=== PATIENT | female | born 1970 | race Caucasian/White ===

== ENCOUNTER 2022-05-03 08:42 | Outpatient (CLI) | payer OTHER, SELFPAY ==
[2022-05-03 18:48] LABS: Kit Draw Collected
== END 2022-05-03 08:43 | disposition home or self-care (01) ==
LOC: ANHGOSHLAB 08:45
PROVIDERS: PCP Family Medicine; Visit Provider Family Medicine
DX: Z00.00 Encounter for general adult medical examination without abnormal findings (principal); E55.9 Vitamin D deficiency, unspecified; Z11.59 Encounter for screening for other viral diseases; Z78.0 Asymptomatic menopausal state
CPT/HCPCS: 36415

== ENCOUNTER 2024-01-06 13:32 | Outpatient (CLI) | payer OTHER, SELFPAY ==
[2024-01-06 17:21] LABS: Influenza A QL RT-PCR Negative (Negative); Influenza B QL RT-PCR Negative (Negative); RSV RNA, RT-PCR Negative (Negative); SARS-CoV-2 RNA PCR Negative (Negative)
== END 2024-01-06 13:33 | disposition home or self-care (01) ==
LOC: ANHGOSHLAB 13:34
PROVIDERS: PCP Family Medicine; Visit Provider Student in an Organized Health Care Education/Training Program
DX: Z11.52 Encounter for screening for COVID-19 (principal)
CPT/HCPCS: 87637

== ENCOUNTER 2024-08-02 13:39 | Outpatient (CLI) | payer OTHER, SELFPAY ==
--- OUTSIDE RECORDS SUMMARY | 2024-08-02 13:43 | XMS_ITS | Referral Summary ---
Author Organization [facility] Healthcare Address [address] [place] [address] Care Team Providers Care Boot Maker Name Role Phone Zandra Renner MD Unavailable Bib Burnham MD Unavailable [phone] Deidra Sanders MD Unavailable [phone] Therese Chadwick MD Primary Care Provider + Encounters Date Type Department Care Team Description 08/02/2024 Orders Only [facility] Oncology [address] [place] [address] [address] [place] [phone] Lili Alvarado RN Malignant neoplasm of upper-outer quadrant of right breast in female, estrogen receptor positive (HCC) (Primary Dx) 08/02/2024 Orders Only [facility] Oncology [address] [place] [address] [address] [place] [phone] Lili Alvarado, RN 07/25/2024 1:00 PM CDT Office Visit [facility] Obstetrics and Gynecology [address] [facility] 7th Floor [address] [place] [address] Albina Howard MD Menopause (Primary Dx); Urinary urgency; Genitourinary syndrome of menopause; Malignant neoplasm of upper-outer quadrant of right breast in female, estrogen receptor positive (HCC) 07/24/2024 Orders Only [facility] Oncology [address] [place] [address] [address] [place] [phone] Lili Alvarado RN Urinary urgency (Primary Dx) from Last 3 Months Allergies Active Allergy Reactions Criticality Noted Date Comments Clarithromycin Nausea & Vomiting Low 06/11/2010 Nitrofurantoin Nausea & Vomiting High 10/14/2023 Medications UNABLE TO FIND Take 1 each by mouth every morning Med Name: BIOTIN HAIR GUMMIE. 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 estrogen receptor modulators (serms) Take 1 tablet (20 mg total) by mouth daily 90 tablet 3 5 04/27/19 26 Active fezolinetant (Veozah) tablet tabletIndicatio ns:Vasomotor Symptoms associated with Menopause Take 1 tablet (45 mg total) by mouth daily 30 tablet 11 5 04/27/19 26 Active estradioL (VAGIFEM) 10 mcg tabletIndicatio ns:Urinary urgency,Genitou rinary syndrome of menopause Insert 1 tablet (10 mcg total) into the vagina 2 (two) times a week 24 tablet 3 5 Active oxyBUTYnin XL (DITROPAN-XL) 5 mg 24 hr tablet Take 1 tablet (5 mg total) by mouth daily 5 07/26/19 25 Discontinu ed(Therapy completed) Active Problems Problem Noted Date Diagnosed Date half-way (current) use of aromatase inhibitors 03/27/2024 Scoliosis, unspecified scoli osis type, unspecified spinal region 11/03/2022 Other idiopathic scoliosis, thoracolumbar region 09/08/2022 Onychomycosis 06/13/2022 07/15/2022 Paronychia of toe 06/11/2022 07/15/2022 Malignant neoplasm of upper- outer quadrant of right breast in female, estrogen receptor positive 07/10/2021 Persons encountering health services in other specified circumstances 05/11/2021 Malignant neoplasm of upper- outer quadrant of right breast in female, estrogen receptor positive 03/10/2021 Cancer Staging:Pathologic stage from 03/31/2021:Stage IA(pT1c, pN1mi, cM0, G1, ER+, WV+, HER2-) - Signed by Tristian Vallejo MD PhD on 04/22/2021 Overview (03/10/2021): Added automatically from request for surgery [id number] [place] angioma 05/28/2020 07/15/2022 Overview (07/15/2022): Last Assessment & Plan: - Benign, reassurance - Discussed VBeam as treatment option, patient elects for treatment today Multiple benign melanocytic nevi of upper and lower extremities and trunk 05/28/2020 07/15/2022 Overview (07/15/2022): Last Assessment & Plan: - Benign, reassurance and overall uniform appearance on current clinical exam - Counseled on importance of daily sun protection (Broad spectrum, SPF >30), monthly self skin exams Seborrheic keratoses, inflamed 05/28/2020 0 07/15/2022 Overview (07/15/2022): Last Assessment & Plan: - R leg, L thigh, L inframammary, R upper back x4 total - Discussed benign potential - Fully reviewed treatment options with patient including indications, risks, benefits, alternatives to cryotherapy - patient desires treatment - Cryo x 4 lesions, 7 second freeze time x 1 cycle - Wound care reviewed - Post cryo handout given Acne vulgaris 11/08/2014 Onycholysis 10/04/2011 Overview (03/30/2018): Overview: most likely trauma related Immunizations Immunization Administration Dates Next Due Influenza, Quadrivalent, Rec ombinant, Egg Free, Preservative Free, Intramuscular 01/29/2021 Tdap 05/01/2020 Social History Tobacco Use Types Packs/Day Years Used Date Smoking Tobacco: Never Passive Smoke Exposure: Never Smokeless Tobacco: Never Tobacco Cessation:Counseling Given: Not Answered Alcohol Use Standard Drinks/Week Comments Never 0 (1 standard drink = 0.6 oz pur e alcohol) AUDIT-C Answer Date Recorded Q1: How often do you have a drink containing alc ohol? 2-4 times a month 10/27/2022 Q2: How many drinks containi ng alcohol do you have on a typical day when you are drinking? 3 or 4 10/27/2022 Q3: How often do you have si x or more drinks on one occasion? Never 10/27/2022 Personal Safety Answer Date Recorded Have you ever been in or are you currently in a harmful physical or emotional relationship or is someone making you feel afraid or unsafe? Denies 11/05/2022 Comments No Sex and Gender Information Value Date Recorded Sex Assigned at Not on file Legal Sex Female 3:14 AM SPLUNK CONSULTANT Gender Identity Not on file Sexual Orientation Not on file Last Filed Vital Signs Vital Sign Reading Time Taken Comments Blood Pressure 106/70 07/25/2024 12:59 PM CDT Pulse 84 04/27/2024 8:50 AM SPLUNK CONSULTANT Temperature 36.3 C (97.4 F) 04/27/2024 8:50 AM SPLUNK CONSULTANT Respiratory Rate 16 04/27/2024 8:50 AM SPLUNK CONSULTANT Oxygen Saturation 98% 04/27/2024 8:50 AM SPLUNK CONSULTANT Inhaled Oxygen Concentration - - Weight 61.7 kg (136 lb) 07/25/2024 12:59 PM CDT Height 157.5 cm (5' 2 ) 07/25/2024 12:59 PM CDT Body Mass Index 24.87 07/25/2024 12:59 PM CDT Plan of Treatment Not on file Medical Devices Implanted Type Area Monitor Worker Device Identifier Shelf Expiration Date Model / Serial / Lot Lt Knee Acl Repair,Screw Left: Knee Bard Peripheral Vascular [id number] Ghiatas 20ga 20cm 7cm Beaded Needle Breast Wire Localization - [id number] Implanted:Qty: 1 on 03/31/2021 at [facility] Right: Breast Bard Peripheral Vascular [id number] / / Bard Peripheral Vascular [id number] Ghiatas 20ga 20cm 7cm Beaded Needle Breast Wire Localization - [id number] Implanted:Qty: 1 on 03/31/2021 at [facility] Right: Breast Bard Peripheral Vascular [id number] / / Depuy Synthes Spine Expedium 6mm 40mm Fix Spine Cortical Screw Bone Titanium 5.5mm [id number] - [id number] Implanted:Qty: 13 on 11/03/2022 by Azam Trimble MD at [facility] N/A: Spine Lumbar Depuy Synthes Spine [id number] / / Depuy Synthes Spine Expedium 6mm 45mm Fix Spine Cortical Screw Bone Titanium 5.5mm [id number] - [id number] Implanted:Qty: 1 on 11/03/2022 by Azam Trimble MD at [facility] N/A: Spine Lumbar Depuy Synthes Spine [id number] / / Depuy Synthes Spine Expedium 1 Inner Monoaxial Spine Screw Set Titanium [id number] - [id number] Implanted:Qty: 20 on 11/03/2022 by Azam Trimble MD at [facility] N/A: Spine Lumbar Depuy Synthes Spine [id number] / / Depuy Synthes Spine Expedium 8mm 80mm Polyaxial Spine Screw Bone Titanium Nonsterile [id number] - [id number] Implanted:Qty: 2 on 11/03/2022 by Azam Trmible MD at [facility] N/A: Spine Lumbar Depuy Synthes Spine [id number] / / Depuy Synthes Spine [place] Expedium 9.5mm Closed Wide Blade Hook Spinal Titanium 5.5mm [id number] - [id number] Implanted:Qty: 2 on 11/03/2022 by Azam Trimble MD at [facility] N/A: Spine Lumbar Depuy Synthes Spine [id number] / / Depuy Synthes Spine [place] Expedium 5mm 40mm Fix Valencia Spinal Titanium [id number] - [id number] Implanted:Qty: 2 on 11/03/2022 by Azam Trimble MD at [facility] N/A: Spine Lumbar Depuy Synthes Spine [id number] / / Depuy Synthes Spine Valencia Spinal Post Medway Expedium 5x50mm Titanium Fixed [id number] - [id number] Implanted:Qty: 1 on 11/03/2022 by Azam Trimble MD at [facility] N/A: Spine Lumbar Depuy Synthes Spine [id number] / / Depuy Synthes Spine [place] Expedium 6mm 45mm Fix Valencia Spinal Titanium [id number] - [id number] Implanted:Qty: 2 on 11/03/2022 by Azam Trimble MD at [facility] N/A: Spine Lumbar Depuy Synthes Spine [id number] / / Depuy Synthes Spine [place] Expedium 6mm 50mm Fix Valencia Spinal Titanium [id number] - [id number] Implanted:Qty: 3 on 11/03/2022 by Azam Trimble MD at [facility] N/A: Spine Lumbar Depuy Synthes Spine [id number] / / Depuy Synthes Spine [place] Expedium 7mm 45mm Fix Valencia Spinal Titanium [id number] - [id number] Implanted:Qty: 1 on 11/03/2022 by Azam Trimble MD at [facility] N/A: Spine Lumbar Depuy Synthes Spine [id number] / / Depuy Synthes Spine [place] Expedium 7mm 40mm Fix Valencia Spinal Titanium [id number] - [id number] Implanted:Qty: 2 on 11/03/2022 by Azam Trimble MD at [facility] N/A: Spine Lumbar Depuy Synthes Spine [id number] / / Depuy Synthes Spine [place] Expedium Slot Spine Mini Left Offset Connector Jalen Titanium [id number] - [id number] Implanted:Qty: 1 on 11/03/2022 by Azam Trimble MD at [facility] N/A: Spine Lumbar Depuy Synthes Spine [id number] / / Depuy Synthes Spine [place] Expedium Slot Spine Mini Right Offset Connector Jalen [id number] - [id number] Implanted:Qty: 2 on 11/03/2022 by Azam Trimble MD at [facility] N/A: Spine Lumbar Depuy Synthes Spine [id number] / / Depuy Synthes Spine [place] Expedium Slot Spine Straight Connector Jalen Titanium Ddv [id number] - [id number] Implanted:Qty: 4 on 11/03/2022 by Azam Trimble MD at [facility] N/A: Spine Lumbar Depuy Synthes Spine [id number] / / Depuy Synthes Spine [place] Expedium Slot Extend Spine Connector Jalen Titanium Ddv [id number] - [id number] Implanted:Qty: 2 on 11/03/2022 by Azam Trimble MD at [facility] N/A: Spine Lumbar Depuy Synthes Spine [id number] / / Depuy Synthes Spine 5.5mm Offset Twister Wire Titanium Latex Free [id number] - [id number] Implanted:Qty: 2 on 11/03/2022 by Azam Trimble MD at [facility] N/A: Spine Lumbar Depuy Synthes Spine [id number] / / Depuy Synthes Spine Expedium Viper 2 5.5mm 480mm Straight Jalen Spinal [id number] - [id number] Implanted:Qty: 4 on 11/03/2022 by Azam Trimble MD at [facility] N/A: Spine Lumbar Depuy Synthes Spine [id number] / / Depuy Synthes Spine [place] 5.5mm 40mm Transverse Body Spine Connector Jalen Titanium [id number] - [id number] Implanted:Qty: 2 on 11/03/2022 by Azam Trimble MD at [facility] N/A: Spine Lumbar Depuy Synthes Spine [id number] / / Depuy Synthes Spine Expedium 5.5mm Open Closed Spine Connector Jalen Titanium [id number] - [id number] Implanted:Qty: 2 on 11/03/2022 by Azam Trimble MD at [facility] N/A: Spine Lumbar Depuy Synthes Spine [id number] / / Depuy Synthes Spine Medway Expedium 2 Spine Wire Fixation Cocr Titanium [id number] - [id number] Implanted:Qty: 2 on 11/03/2022 by Azam Trimble MD at [facility] N/A: Spine Lumbar Depuy Synthes Spine [id number] / / Depuy Synthes Spine Medway Expedium Valencia Spinal Nut Lock Titanium [id number] - [id number] Implanted:Qty: 11 on 11/03/2022 by Azam Trimble MD at [facility] N/A: Spine Lumbar Depuy Synthes Spine [id number] / / Abyrx Hemasorb Filled Applicator Surgical Iggy-351 - [id number] Implanted:Qty: 1 on 11/03/2022 by Azam Trimble MD at [facility] N/A: Spine Lumbar Abyrx [id number] 06/11/2025 IGGY-351 / / Medtronic Inc Kit Graft Bone Sponge Xlg Infuse 8cc Granules [id number] - [id number] Implanted:Qty: 4 on 11/03/2022 by Azam Trimble MD at [facility] N/A: Spine Lumbar Medtronic Inc [id number] 05/12/2024 [id number] / / [id number] Allosource Crushed Chip Frozen Graft 90ml Bone Cancellous [id number] - [id number] Implanted:Qty: 1 on 11/03/2022 by Azam Trimble MD at [facility] N/A: Spine Lumbar Allosource 06/21/2027 [id number] / / [id number] Allosource Crushed Chip Frozen Graft 90ml Bone Cancellous [id number] - [id number] Implanted:Qty: 1 on 11/03/2022 by Azam Trimble MD at [facility] N/A: Spine Lumbar Allosource 06/29/2027 [id number] / / [id number] Allosource Crushed Chip Frozen Graft 60ml Bone Cancellous [id number] - [id number] Implanted:Qty: 1 on 11/03/2022 by Azam Trimble MD at [facility] N/A: Spine Lumbar Allosource 06/27/2027 [id number] / / [id number] Explanted Type Area Monitor Worker Device Identifier Shelf Expiration Date Model / Serial / Lot Bard Peripheral Vascular [id number] Powerport Clearvue Airguard 8fr 1 Lumen Lightweight Intermediate Latex Free - [id number] Implanted:Qty: 1 on 05/26/2021 by Bib Burnham MD at [facility] Explanted:Qty: 1 on 08/18/2021 by Bib Burnham MD at [facility] Left: Chest Bard Peripheral Vascular [id number] 06/11/2022 [id number] / / [id number] Procedures Procedure Name Priority Date/Time Associated Diagnosis Comments DIAGNOSTIC MAMMOGRAM BILATERAL W LIO Schedule Routine, Read Routine (OP Routine) 02/20/2024 3:07 PM SPLUNK CONSULTANT Malignant neoplasm of upper-outer quadrant of right breast in female, estrogen receptor positive (HCC) Malignant neoplasm of right breast in female, estrogen receptor positive, unspecified site of breast (HCC) from Last 3 Months or Most Recently Relevant to Health Maintenance Results * Diagnostic Mammogram Bilateral W Lio (02/20/2024 3:07 PM SPLUNK CONSULTANT) Anatomical Region Laterality Modality Breast Bilateral Mammography 02/20/2024 3:08 PM SPLUNK CONSULTANT Impressions 02/20/2024 3:37 PM SPLUNK CONSULTANT 1. Stable RIGHT breast conservation therapy changes. 2. No suspicious mammographic abnormality in EITHER breast. OVERALL FINAL ASSESSMENT: BI-RADS Category 2: Benign. RECOMMENDATION: 1. Annual screening mammography is recommended. 2. Breast MRI should also be considered for supplemental imaging surveillance given personal history of breast cancer and/or dense breast tissue. Dr. Piero Yen MD discussed the above findings and recommendations with the patient, who expressed her understanding of the management plan. Dictated by: Piero Yen MD The radiology attending physician has personally reviewed this study, and had reviewed and/or edited this written report and agrees with it. Electronically signed by: Ryann Henriquez M.D. Narrative 02/20/2024 3:37 PM SPLUNK CONSULTANT EXAMINATION: BILATERAL DIGITAL DIAGNOSTIC MAMMOGRAM INCLUDING CAD AND BILATERAL DIGITAL BREAST TOMOSYNTHESIS HISTORY: 53-year-old woman with history of RIGHT breast invasive ductal carcinoma and complex sclerosing lesion status post RIGHT breast observation therapy in March 2021 followed by chemotherapy and radiation COMPARISON: Multiple priors, most recently of 02/15/2022, dating back to 02/11/2021. TECHNIQUE: Full field digital mammographic views of BOTH breasts were performed, including computer aided detection (CAD) and BILATERAL digital breast tomosynthesis (DBT). BREAST PARENCHYMAL COMPOSITION: The breasts are heterogeneously dense, which may obscure small masses. MAMMOGRAM FINDINGS: There are stable post-treatment changes in the RIGHT breast. There is no suspicious mass, distortion, or calcification in EITHER breast. There has been no significant interval change from the previous study. Procedure Note Ryann Henriquez MD - 02/20/2024 EXAMINATION: BILATERAL DIGITAL DIAGNOSTIC MAMMOGRAM INCLUDING CAD AND BILATERAL DIGITAL BREAST TOMOSYNTHESIS HISTORY: 53-year-old woman with history of RIGHT breast invasive ductal carcinoma and complex sclerosing lesion status post RIGHT breast observation therapy in March 2021 followed by chemotherapy and radiation COMPARISON: Multiple priors, most recently of 02/15/2022, dating back to 02/11/2021. TECHNIQUE: Full field digital mammographic views of BOTH breasts were performed, including computer aided detection (CAD) and BILATERAL digital breast tomosynthesis (DBT). BREAST PARENCHYMAL COMPOSITION: The breasts are heterogeneously dense, which may obscure small masses. MAMMOGRAM FINDINGS: There are stable post-treatment changes in the RIGHT breast. There is no suspicious mass, distortion, or calcification in EITHER breast. There has been no significant interval change from the previous study. IMPRESSION: 1. Stable RIGHT breast conservation therapy changes. 2. No suspicious mammographic abnormality in EITHER breast. OVERALL FINAL ASSESSMENT: BI-RADS Category 2: Benign. RECOMMENDATION: 1. Annual screening mammography is recommended. 2. Breast MRI should also be considered for supplemental imaging surveillance given personal history of breast cancer and/or dense breast tissue. Dr. Piero Yen MD discussed the above findings and recommendations with the patient, who expressed her understanding of the management plan. Dictated by: Piero Yen MD The radiology attending physician has personally reviewed this study, and had reviewed and/or edited this written report and agrees with it. Electronically signed by: Ryann Henriquez M.D. Bib Burnham MD IMG MAMMO PROCEDURES Fi nal Result from Last 3 Months or Most Recently Relevant to Health Maintenance Insurance [facility] CHOICE PLUS Advance Directives For more information, please contact: [phone] Documents on File Type Date Recorded Patient Grape Grower Expl anation ADVANCE DIRECTIVE 11/02/2022 10:38 AM Carlos r of Banking Supervisor-Financial/Medica l * Full Code (Latest Code Status on File) Date Activated Date Inactivated Comments 11/03/2022 8:43 PM 11/10/2022 5:25 PM * Full Code Date Activated Date Inactivated Comments 11/02/2022 10:23 AM 11/03/2022 5:19 AM Care Teams Boot Maker Relationship Specialty Start Date End Date Therese Chadwick MD [address] DIV MEDICAL ONCOLOGY, [facility] [address] [place] [address] PCP - General Family Medicine 04/11/23 Zandra Renner MD [address] [place] [address] Radiation Oncologist Radiation Oncology 04/22/21 Bib Burnham MD [address] [place] [address] Surgeon Surgical Oncology 04/22/21 Deidra Sanders MD [address] DIV MEDICAL ONCOLOGY, [facility] [address] [place] [address] Medical Oncologist/Pharmaceutical Laboratory Technician Medical Oncology 04/24/21
--- OUTSIDE RECORDS SUMMARY | 2024-08-02 13:44 | XMS_ITS | Clinical Summary ---
Author Organization [facility] Address [address] [place] [address] Care Team Providers Care Ekg Manager Name Role Phone Therese Chadwick MD Primary Care Provider [phone] Source Comments [facility],non-owned Affiliates and Associated Physician Practices is amultiple site organization consisting of ambulatory clinics and hospital sitesin [place], [place], [place] and [place]. This disclosure is being madepursuant to the Care Everywhere program and may not contain all information available regarding this patient. Last updated 17.[facility] Allergies Active Allergy Reactions Criticality Noted Date Comments Clarithromycin Nausea and/or Vomiting 1 Medications * Be aware that medications may not be up to date on this document. Alwaysverify current medications with the patient. 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 03/27/2024 Scoliosis 11/03/2022 05/20/2023 Onychomycosis 06/13/2022 Paronychia of toe 06/11/2022 Onychodystrophy 06/11/2022 Malignant neoplasm of upper- outer quadrant of right breast in female, estrogen receptor positive 03/10/2021 Overview (11/10/2021): Added automatically from request for surgery [id number] Actinic skin damage 05/28/2020 Assessment & Plan (05/28/2020 2:00 PM CDT): - Chronic - Extensive lesions associated with sun damage and increased risk of skin cancer - Reviewed concerning signs for development of skin cancer - Counseled on importance of daily sun protection, recommend OTC broad spectrum, SPF >30 - Advised monthly self skin exams [place] angioma 05/28/2020 Assessment & Plan (05/28/2020 2:11 PM CDT): - Benign, reassurance - Discussed VBeam as treatment option, patient elects for treatment today Seborrheic keratoses, inflamed 05/28/2020 Assessment & Plan (05/28/2020 2:11 PM CDT): - R leg, L thigh, L inframammary, R upper back x4 total - Discussed benign potential - Fully reviewed treatment options with patient including indications, risks, benefits, alternatives to cryotherapy - patient desires treatment - Cryo x 4 lesions, 7 second freeze time x 1 cycle - Wound care reviewed - Post cryo handout given Multiple benign melanocytic nevi of upper and lower extremities and trunk 05/28/2020 Assessment & Plan (05/28/2020 2:16 PM CDT): - Benign, reassurance and overall uniform appearance on current clinical exam - Counseled on importance of daily sun protection (Broad spectrum, SPF >30), monthly self skin exams Acne vulgaris 11/08/2014 Onycholysis 10/04/2011 Overview (06/13/2017): most likely trauma related Encounters Date Type Department Care Team Description 07/20/2024 Travel 06/19/2024 Travel 05/15/2024 1:20 PM RECONCILIATION ANALYST Office Visit [facility] - Cosmetic Dermatology [address], [address] [place] [address] Claudia Garces MD Seborrheic keratoses (Primary Dx); Solar lentiginosis; Multiple benign melanocytic nevi of upper and lower extremities and trunk; Onychodystrophy; [place] angioma 05/15/2024 Travel from Last 3 Months Family History Medical History Relation Name Comments Cancer - Skin, Non Melanoma Father Allergy (Severe) Neg Hx CVA Neg Hx Cancer Neg Hx Cancer - Skin, Melanoma Neg Hx Eczema Neg Hx Hemophilia Neg Hx Psoriasis Neg Hx Rashes/Skin Problems Neg Hx Relation Name Status Comments Father Social History Tobacco Use Types Packs/Day Years Used Date Smoking Tobacco: Never Smokeless Tobacco: Never Tobacco Cessation:Counseling Given: Not Answered Alcohol Use Standard Drinks/Week Comments Yes 0 (1 standard drink = 0.6 oz pur e alcohol) Comments Unknown Sex and Gender Information Value Date Recorded Sex Assigned at Not on file Legal Sex Female 5:45 PM RECONCILIATION ANALYST Gender Identity Not on file Sexual Orientation Not on file Plan of Treatment Upcoming Encounters Date Type Department Care Team (Late st Contact Info) Description 09/04/2024 9:00 AM CDT Cosmetic Visit [facility] - Cosmetic Dermatology [address], [address] [place] [address] Hiwot Diego Update Information 05/21/2025 9:00 AM CDT Office Visit [facility] - Cosmetic Dermatology [facility], [address] [place] [address] Claudia Garces MD [address] [place] [place] [address] Health Maintenance Due Date Last Done Comments COLON MONITORING 1969 COLONOSCOPY - COLON CA SCREENING 1969 CT COLONOGRAPHY - COLON CA SCREENING 1969 FIT - COLON CA SCREENING 1969 FLEX SIG - COLON CA SCREENING 1969 LIPID TESTING 1969 PAP SMEAR 1969 HIV SCREENING 1984 HEPATITIS C SCREENING 07/15/1987 DTAP/TDAP/TD VACCINES (1 - Tdap) 1988 HEPATITIS B VACCINE (1 of 3 - 19+ 3-dose series) 1988 PNEUMOCOCCAL VACCINE 50+ (1 of 1 - PCV) 07/20/2019 ZOSTER VACCINE (1 of 2) 07/20/2019 COLOGUARD (AGES 45-75) - COLON CA SCREENING 05/08/2023 05/08/2020 Colorectal Cancer Screening 05/08/2023 COVID-19 VACCINE ( - 2023- season) 2023 DEPRESSION SCREENING 03/14/2024 INFLUENZA VACCINE (Season Ended) 2024 01/29/2021 MAMMOGRAM 02/19/2026 02/20/2024, 09/2022, 02/15/2022, Additional history exists HIB VACCINE Aged Out No longer eligi ble based on patient's age to complete this topic HPV VACCINE Aged Out No longer eligi ble based on patient's age to complete this topic MENINGOCOCCAL (Group B) VACCINE SHARED DECISION-MAKING Aged Out No longer eligible based on patient's age to complete this topic MENINGOCOCCAL GROUPS A/C/Y/W VACCINE Aged Out No longer eligible based on patient's age to complete this topic Insurance [facility] Care Teams Ekg Manager Relationship Specialty Start Date End Date Therese Chadwick MD [address] [place] [address] PCP - General Family Medicine 05/17/23
--- OUTSIDE RECORDS SUMMARY | 2024-08-02 13:44 | XMS_ITS | Clinical Summary ---
Author Organization [facility] Healthcare Address [address] [place] [address] Care Team Providers Care Railroad Car Cleaning Supervisor Name Role Phone Zandra Renner MD Unavailable Bib Burnham MD Unavailable [phone] Deidra Sanders MD Unavailable [phone] Therese Chadwick MD Primary Care Provider + Allergies Active Allergy Reactions Criticality Noted Date Comments Clarithromycin Nausea & Vomiting Low 06/11/2010 Nitrofurantoin Nausea & Vomiting High 10/14/2023 Medications UNABLE TO FIND Take 1 each by mouth every morning Med Name: LYNNE ALONSO GIANNIAKILA. 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 03/27/2024 Scoliosis, [...] from 03/31/2021:Stage IA(pT1c, pN1mi, cM0, G1, ER+, UT+, HER2-) - Signed by Tristian Vallejo MD PhD on 04/22/2021 Overview (03/10/2021): Added automatically from request for surgery [id number] [place] angioma 05/28/2020 07/15/2022 Overview (07/15/2022): Last [...] Overview (03/30/2018): Overview: most likely trauma related Encounters Date Type Department Care Team Description 08/02/2024 Orders Only [facility] [address] [place] [address] [address] [place] [address] Lili Alvarado RN Malignant neoplasm of upper-outer quadrant of right breast in female, estrogen receptor positive (HCC) (Primary Dx) 08/02/2024 Orders Only [facility] [address] [place] [address] [address] [place] [address] Lili Alvarado RN 07/25/2024 1:00 PM CDT Office Visit [facility] Obstetrics and Gynecology [address] [facility] 7th [address] [place] [address] Albina Howard MD Menopause (Primary Dx); Urinary urgency; Genitourinary syndrome of menopause; Malignant neoplasm of upper-outer quadrant of right breast in female, estrogen receptor positive (HCC) 07/24/2024 Orders Only [facility] [address] [place] [address] [address] [place] [address] Lili Alvarado RN Urinary urgency (Primary Dx) from Last 3 Months Immunizations Immunization Administration Dates Next Due Influenza, Quadrivalent, Rec ombinant, Egg Free, Preservative Free, Intramuscular 01/29/2021 Tdap 05/01/2020 Surgical History Surgery Date Site/Laterality Comments KNEE ARTHROSCOPY Left acl repair IR INJECTION ARTHROGRAM SI J OINT RIGHT INCLUDES IMAGING GUIDANCE 06/13/2018 Right PARTIAL HYSTERECTOMY 11 yrs ago BREAST BIOPSY 02/17/2021 Right BREAST BIOPSY 02/27/2021 Right BREAST LUMPECTOMY 03/14/2021 - 04/13/2021 Right WISDOM TOOTH EXTRACTION PORTACATH PLACEMENT 03/14/2021 - 03/13/2022 HYSTERECTOMY 2005 COSMETIC SURGERY 2005 JOINT REPLACEMENT 2009 ACL repair CENTRAL LINE PLACEMENT > 5 YEARS 11/02/2022 N/A Medical History Medical History Date Comments Motion sickness Covid-19 01/2020 Breast cancer (HCC) breast Osteoporosis PONV (postoperative nausea and vomiting) Family History Medical History Relation Name Comments Spondylolisthesis Daughter Spondyloli sthesis - (Added by TW Conv) Diabetes Father Huan Family history of diabetes mellitus - (Added by TW Conv) Heart disease Father Huan Family history of cardiac disorder - (Added by TW Conv) Hypertension Father Huan Family history of hypertension - (Added by TW Conv) No Known Problems Mother Cancer Sister 1 Jasmine Spondylolisthesis Sister 1 Jasmine Cancer Sister 2 Jasmine Anesthesia problems Neg Hx Broken bones Neg Hx Hip fracture Neg Hx Osteoporosis Neg Hx Relation Name Status Comments Daughter Father Huan Mother Sister 1 Jasmine Sister 2 Jasmine Social History Tobacco Use Types Packs/Day Years [...] on file Legal Sex Female 3:14 AM CHILD CARE CENTER ASSISTANT DIRECTOR Gender Identity Not on file Sexual Orientation Not on file Obstetrics History Para Term AB IAB SAB Ectopic Multiple Livin g Live Births 4 3 Date Outcome GA Total Labor Labor/2nd/3rd Weight Sex Type Anes PTL Kayla A1 A5 Name Clin Para Para Para Last Filed Vital Signs Vital Sign Reading Time Taken Comments Blood Pressure 106/70 07/25/2024 12:59 PM CDT Pulse 84 04/27/2024 8:50 AM CHILD CARE CENTER ASSISTANT DIRECTOR Temperature 36.3 C (97.4 F) 04/27/2024 8:50 AM CHILD CARE CENTER ASSISTANT DIRECTOR Respiratory Rate 16 04/27/2024 8:50 AM CHILD CARE CENTER ASSISTANT DIRECTOR Oxygen Saturation 98% 04/27/2024 8:50 AM CHILD CARE CENTER ASSISTANT DIRECTOR Inhaled Oxygen Concentration - - Weight 61.7 kg (136 lb) 07/25/2024 12:59 PM CDT Height 157.5 cm (5' 2 ) 07/25/2024 12:59 PM CDT Body Mass Index 24.87 07/25/2024 12:59 PM CDT Plan of Treatment Health Maintenance Due Date Last Done Comments Colon Cancer Screening-Colonoscopy 1969 Depression Screening 1969 Hepatitis C Screening 1969 Hepatitis B Screening 07/20/1987 Regular Well Visit/Exam 18-64 07/20/1987 Pneumococcal vaccine <65 (1 of 2 - PCV) 1988 Zoster Vaccine (1 of 2) 1988 Covid-19 Vaccine (4 - 2023-2 5 season) 2023 03/05/2021, 06/13/2020, 05/23/2020 Influenza Vaccine (Season Ended) 2024 01/30/20 21 Breast Cancer Screening-Mammogram 02/19/2025 02/20/2024, 02/17/2023, 02/15/2022, Additional history exists DTaP/Tdap/Td Vaccine (2 - Td or Tdap) 05/01/2030 05/01/2020 Medical Devices Implanted Type Area Police Chief Deputy Device Identifier Shelf Expiration Date Model / Serial / Lot Lt Knee Acl Repair,Screw Left: Knee Bard Peripheral Vascular [id number] Ghiatas 20ga 20cm 7cm Beaded Needle Breast Wire Localization - [id number] Implanted:Qty: 1 on 03/31/2021 at [facility] Right: Breast Bard Peripheral Vascular [id number] / / Bard Peripheral Vascular 85780 Ghiatas 20ga 20cm 7cm Beaded Needle Breast Wire Localization - [id number] Implanted:Qty: 1 on 03/31/2021 at [facility] Right: Breast Bard Peripheral Vascular [id number] / / Depuy Synthes Spine Expedium 6mm 40mm Fix Spine Cortical Screw Bone Titanium 5.5mm [id number] - [id number] Implanted:Qty: 13 on 11/03/2022 by Azam Trimble MD at [facility] N/A: Spine Lumbar Depuy Synthes Spine [id number] / / Depuy Synthes Spine Expedium 6mm 45mm Fix Spine Cortical Screw Bone Titanium 5.5mm [id number] - [id number] Implanted:Qty: 1 on 11/03/2022 by Azam Trimble MD at [facility] N/A: Spine Lumbar Depuy Synthes Spine [id number] / / Depuy Synthes Spine Expedium 1 Inner Monoaxial Spine Screw Set Titanium [id number] - [id number] Implanted:Qty: 20 on 11/03/2022 by Azam Trimble MD at [facility] N/A: Spine Lumbar Depuy Synthes Spine [id number] / / Depuy Synthes Spine Expedium 8mm 80mm Polyaxial Spine Screw Bone Titanium Nonsterile [id number] - [id number] Implanted:Qty: 2 on 11/03/2022 by Azam Trimble MD at [facility] N/A: Spine Lumbar Depuy Synthes Spine [id number] / / Depuy Synthes Spine [place] Expedium 9.5mm Closed Wide Blade Hook Spinal Titanium 5.5mm [id number] - [id number] Implanted:Qty: 2 on 11/03/2022 by Azam Trimble MD at [facility] N/A: Spine Lumbar Depuy Synthes Spine [id number] / / Depuy Synthes Spine [place] Expedium 5mm 40mm Fix Rolla Spinal Titanium [id number] - [id number] Implanted:Qty: 2 on 11/03/2022 by Azam Trimble MD at [facility] N/A: Spine Lumbar Depuy Synthes Spine [id number] / / Depuy Synthes Spine Rolla Spinal Post [place] Expedium 5x50mm Titanium Fixed [id number] - [id number] Implanted:Qty: 1 on 11/03/2022 by Azam Trimble MD at [facility] N/A: Spine Lumbar Depuy Synthes Spine [id number] / / Depuy Synthes Spine [place] Expedium 6mm 45mm Fix Rolla Spinal Titanium [id number] - [id number] Implanted:Qty: 2 on 11/03/2022 by Azam Trimble MD at [facility] N/A: Spine Lumbar Depuy Synthes Spine [id number] / / Depuy Synthes Spine [place] Expedium 6mm 50mm Fix Rolla Spinal Titanium [id number] - [id number] Implanted:Qty: 3 on 11/03/2022 by Azam Trimble MD at [facility] N/A: Spine Lumbar Depuy Synthes Spine [id number] / / Depuy Synthes Spine [place] Expedium 7mm 45mm Fix Rolla Spinal Titanium [id number] - [id number] Implanted:Qty: 1 on 11/03/2022 by Azam Trimble MD at [facility] N/A: Spine Lumbar Depuy Synthes Spine [id number] / / Depuy Synthes Spine [place] Expedium 7mm 40mm Fix Rolla Spinal Titanium [id number] - [id number] Implanted:Qty: 2 on 11/03/2022 by Azam Trimble MD at [facility] N/A: Spine Lumbar Depuy Synthes Spine [id number] / / Depuy Synthes Spine [place] Expedium Slot Spine Mini Left Offset Connector Jalen Titanium [id number] - [id number] Implanted:Qty: 1 on 11/03/2022 by Azam Trimble MD at [facility] N/A: Spine Lumbar Depuy Synthes Spine [id number] / / Depuy Synthes Spine [place] Expedium Slot Spine Mini Right Offset Connector Jalen [id number] - [id number] Implanted:Qty: 2 on 11/03/2022 by Azam Trimble MD at [facility] N/A: Spine Lumbar Depuy Synthes Spine [id number] / / Depuy Synthes Spine [place] Expedium Slot Spine Straight Connector Jalen Titanium Ddv [id number] - [id number] Implanted:Qty: 4 on 11/03/2022 by Azam Trimble MD at [facility] N/A: Spine Lumbar Depuy Synthes Spine [id number] / / Depuy Synthes Spine [place] Expedium Slot Extend Spine Connector Jalen Titanium Ddv [id number] - [id number] Implanted:Qty: 2 on 11/03/2022 by Azam Trimble MD at [facility] N/A: Spine Lumbar Depuy Synthes Spine [id number] / / Depuy Synthes Spine 5.5mm Offset Twister Wire Titanium Latex Free [id number] - [id number] Implanted:Qty: 2 on 11/03/2022 by Azam Trimble MD at [facility] N/A: Spine Lumbar Depuy Synthes Spine [id number] / / Depuy Synthes Spine Expedium Viper 2 5.5mm 480mm Straight Jalen Spinal [id number] - [id number] Implanted:Qty: 4 on 11/03/2022 by Azam Trimble MD at [facility] N/A: Spine Lumbar Depuy Synthes Spine [id number] / / Depuy Synthes Spine [place] 5.5mm 40mm Transverse Body Spine Connector Jalen Titanium [id number] - [id number] Implanted:Qty: 2 on 11/03/2022 by Azam Trimble MD at [facility] N/A: Spine Lumbar Depuy Synthes Spine [id number] / / Depuy Synthes Spine Expedium 5.5mm Open Closed Spine Connector Jalen Titanium [id number] - [id number] Implanted:Qty: 2 on 11/03/2022 by Azam Trimble MD at [facility] N/A: Spine Lumbar Depuy Synthes Spine [id number] / / Depuy Synthes Spine [place] Expedium 2 Spine Wire Fixation Cocr Titanium [id number] - [id number] Implanted:Qty: 2 on 11/03/2022 by Azam Trimble MD at [facility] N/A: Spine Lumbar Depuy Synthes Spine [id number] / / Depuy Synthes Spine [place] Expedium Rolla Spinal Nut Lock Titanium [id number] - [id number] Implanted:Qty: 11 on 11/03/2022 by Azam Trimble MD at [facility] N/A: Spine Lumbar Depuy Synthes Spine [id number] / / Abyrx Hemasorb Filled Applicator Surgical Iggy-351 - [id number] Implanted:Qty: 1 on 11/03/2022 by Azam Trimble MD at [facility] N/A: Spine Lumbar Abyrx [id number] 06/11/2025 IGGY-351 / / Medtronic Inc Kit Graft Bone Sponge Xlg Infuse 8cc Granules [id number] - [id number] Implanted:Qty: 4 on 11/03/2022 by Azam Trimble MD at [facility] N/A: Spine Lumbar Medtronic Inc [id number] 05/12/2024 [id number] / / [id number] Allosource Crushed Chip Frozen Graft 90ml Bone Cancellous [id number] - [id number] Implanted:Qty: 1 on 11/03/2022 by Azam Trimble MD at [facility] N/A: Spine Lumbar Allosource 06/21/2027 [id number] / / [id number] Allosource Crushed Chip Frozen Graft 90ml Bone Cancellous [id number] - [id number] Implanted:Qty: 1 on 11/03/2022 by Azam Trimble MD at [facility] N/A: Spine Lumbar Allosource 06/29/2027 [id number] / / [id number] Allosource Crushed Chip Frozen Graft 60ml Bone Cancellous [id number] - [id number] Implanted:Qty: 1 on 11/03/2022 by Azam Trimble MD at [facility] N/A: Spine Lumbar Allosource 06/27/2027 [id number] / / [id number] Explanted Type Area Police Chief Deputy Device Identifier Shelf Expiration Date Model / Serial / Lot Bard Peripheral Vascular [id number] Powerport Clearvue Airguard 8fr 1 Lumen Lightweight Intermediate Latex Free - [id number] Implanted:Qty: 1 on 05/26/2021 by Bib Burnham MD at [facility] Explanted:Qty: 1 on 08/18/2021 by Bib Burnham MD at [facility] Left: Chest Bard Peripheral Vascular [id number] 06/11/2022 [id number] / / [id number] Procedures Procedure Name Priority Date/Time Associated Diagnosis Comments DIAGNOSTIC MAMMOGRAM BILATERAL W LIO Schedule Routine, Read Routine (OP Routine) 02/20/2024 3:07 PM CHILD CARE CENTER ASSISTANT DIRECTOR Malignant neoplasm of upper-outer quadrant of right breast in female, estrogen receptor positive (HCC) Malignant neoplasm of right breast in female, estrogen receptor positive, unspecified site of breast (HCC) from Last 3 Months or Most Recently Relevant to Health Maintenance Results * Diagnostic Mammogram Bilateral W Lio (02/20/2024 3:07 PM CHILD CARE CENTER ASSISTANT DIRECTOR) Anatomical Region Laterality Modality Breast Bilateral Mammography 02/20/2024 3:08 PM CHILD CARE CENTER ASSISTANT DIRECTOR Impressions 02/20/2024 3:37 PM CHILD CARE CENTER ASSISTANT DIRECTOR 1. Stable RIGHT breast conservation therapy changes. [...] Ryann Henriquez M.D. Narrative 02/20/2024 3:37 PM CHILD CARE CENTER ASSISTANT DIRECTOR EXAMINATION: BILATERAL DIGITAL DIAGNOSTIC MAMMOGRAM INCLUDING CAD [...] Most Recently Relevant to Health Maintenance Insurance CHOICE PLUS Advance Directives For more information, please contact: [phone] Documents on File Type Date Recorded Patient Luggage Maker Expl anation ADVANCE DIRECTIVE 11/02/2022 10:38 AM Carlos r of Vacuum Drier Tender-Financial/Medica l * Full Code (Latest Code Status on File) Date Activated Date Inactivated Comments 11/03/2022 8:43 PM 11/10/2022 5:25 PM * Full Code Date Activated Date Inactivated Comments 11/02/2022 10:23 AM 11/03/2022 5:19 AM Care Teams Railroad Car Cleaning Supervisor Relationship Specialty Start Date End Date Therese Chadwick MD [address] DIV MEDICAL ONCOLOGY, [facility] [address] [place] [address] PCP - General Family Medicine 04/11/23 Zandra Renner MD [address] [place] [address] Radiation Oncologist Radiation Oncology 04/22/21 Bib Burnham MD [address] [place] [address] Surgeon Surgical Oncology 04/22/21 Deidra Sanders MD [address] DIV MEDICAL ONCOLOGY, [facility] [address] [place] [address] Medical Oncologist/Stopper Maker Medical Oncology 04/24/21
--- OUTSIDE RECORDS SUMMARY | 2024-08-02 13:44 | XMS_ITS ---
Author Organization [facility] Healthcare Address [address] [place] [address] Care Team Providers Care Proj Engineer Name Role Phone Zandra Renner MD Unavailable Bib Burnham MD Unavailable [phone] Deidra Sanders MD Unavailable [phone] Therese Chadwick MD Primary Care Provider + Active Problems Problem Noted Date Diagnosed Date shelter (current) use of aromatase inhibitors 03/27/2024 Scoliosis, [...] from 03/31/2021:Stage IA(pT1c, pN1mi, cM0, G1, ER+, NC+, HER2-) - Signed by Tristian Vallejo MD PhD on 04/22/2021 Overview (03/10/2021): Added automatically from request for surgery [id number] [place] angioma 05/28/2020 07/15/2022 Overview (07/15/2022): Last [...] Overview (03/30/2018): Overview: most likely trauma related Current Treatment and Therapy Plans IV MAINTENANCE THERAPY PLAN* Plan Start Date:07/10/2021 Plan Provider:Deidra Sanders MD Linked Problems Malignant neoplasm of upper- outer quadrant of right breast in female, estrogen receptor positive (HCC) Treatment Medications No medications scheduled. Zoledronic Acid Every 26 Weeks* Plan Start Date:04/20/2024 Plan Provider:Deidra Sanders MD Linked Problems truck terminal manager (current) use of a romatase inhibitorsMalignant neoplasm of upper-outer quadrant of right breast in female, estrogen receptor positive (HCC) Treatment Medications Current Day (Day 1 , Cycle 2 - Planned for 10/26/2024) Next Day (Day 1, Cycle 3 - Planned for 04/26/2025) No medications scheduled. No medications schedul ed. No medications scheduled. Past Treatment and Therapy Plans Oncology Chemotherapy Treatment Plan Name Start Date Discontinue Date Treatment Medications Discontinue Reason Plan Provider Cycles TC: (DOCEtaxe l / Cyclophos phamide) 21 Day Cycles - Breast 2 10/06/2021 cycloPHOSphamide IVPB in 250 mL (vial 200 mg/mL)([id number])DOCEta xel (TAXOTERE) IVPB in 250 mL (vial 20mg/mL) Therapy Complete Deidra Sanders MD 4 of 4 cycles completed Radiation Treatments * Course [id number]/02/2021 - 09/30/2021 Treatment Period Energy Fraction Dose Fractions Total Dose Plans Planned RIGHT BRS BST 09/25/2021 - 09/30/2021 250 4 / 1,000 RT PRONE BRS 09/02/2021 - 09/24/2021 266 16 / 4,256 Reference Points Delivered RIGHT BRS_BOOST 09/25/2021 - 09/30/2021 1,000 DPV_RT BREAST 09/02/2021 - 09/24/2021 4,256 Lifetime Dose Tracking * Chemical Lifetime Dose Automatic Entry Manual Entr y Fluoro Time 2.425 minutes 2.425 minutes 0 minutes cyclophosphamide 2,372.18 mg/m2 (3,920 mg) 2,372.18 mg/m2 (3,920 mg) 0 mg/m2 (0 mg) Air kerma at the reference point (Ka,r) 27.06 mGy 27.06 mGy 0 mGy DLP 1,657 mGycm 1,657 mGycm 0 mGycm
--- OUTSIDE RECORDS SUMMARY | 2024-08-02 13:44 | XMS_ITS | Encounter Summary ---
Author Organization [facility] Health Address [address] [place] [address] Care Team Providers Care Professor Of Law Name Role Phone Genevieve Gutierres MD Primary Care Provider [phone] Therese Chadwick MD Primary Care Provider [phone] Encounter Details Date Type Department Care Team (Late st Contact Info) Description 05/03/2022 Telephone [facility]at[facility] [address] [place] [address], [place] [id number] Joseph Courtney MD [address] [place] [address] [address] [facility] OF DER[facility]Y [place], [place] [id number] Social History Tobacco Use Types Packs/Day Years Used Date Smoking Tobacco: Never Smokeless Tobacco: Never Alcohol Use Standard Drinks/Week Comments Yes 0 (1 standard drink = 0.6 oz pur e alcohol) Comments Unknown Sex and Gender Information Value Date Recorded Sex Assigned at Not on file Legal Sex 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 She is to come back to see how the steriod injections were looking. Is there anyway you could find pt another appt that might work for her, please? Patient Call Back number: [phone] NG MACHINE CATCHER documented in this encounter Plan of Treatment Upcoming Encounters Date Type Department Care Team (Late st Contact Info) Description 09/04/2024 9:00 AM CDT Cosmetic Visit [facility] - Cosmetic Dermatology [address] [place] [address] Hiwot Diego Update Information 05/21/2025 9:00 AM CDT Office Visit [facility] - Cosmetic Dermatology [address], [address] [place] [address] Claudia Garces MD [address] [place] [address] documented as of this encounter Visit Diagnoses Not on filedocumented in this encounter Care Teams Professor Of Law Relationship Specialty Start Date End Date Genevieve Gutierres MD [address] [place] [address] PCP - General 05/22/18 05/16/23 Therese Chadwick MD [address] [place] [address] PCP - General Family Medicine 05/17/23 documented as of this encounter
--- OUTSIDE RECORDS SUMMARY | 2024-08-02 13:44 | XMS_ITS | Encounter Summary ---
Author Organization [facility] Healthcare Address [address] [place] [address] Care Team Providers Care Safety Trainer Name Role Phone Zandra Renner MD Unavailable Bib Burnham MD Unavailable [phone] Deidra Sanders MD Unavailable [phone] Therese Chadwick MD Primary Care Provider + Encounter Details Date Type Department Care Team (Late st Contact Info) Description 11/23/2023 Telephone [facility] Advanced Medicine Radiation Oncology [address] [facility] Advanced Medicine [facility] [place] [address] Mary Kessler NP [address] [facility] [address] [place] [address] Social History Tobacco Use Types Packs/Day Years Used Date Smoking Tobacco: Never Smokeless Tobacco: Never Alcohol Use Standard Drinks/Week Comments Never 0 [...] on file 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[employer] Gender Identity Not on file Sexual Orientation Not on file documented as of this encounter Plan of Treatment Not on file documented as of this encounter Visit Diagnoses Not on filedocumented in this encounter Care Teams Safety Trainer Relationship Specialty Start Date End Date Therese Chadwick MD [address] DIV MEDICAL ONCOLOGY, [facility] [address] [place] [address] PCP - General Family Medicine 04/11/23 Zandra Renner MD [address] [place] [address] Radiation Oncologist Radiation Oncology 04/22/21 Bib Burnham MD [address] [place] [address] Surgeon Surgical Oncology 04/22/21 Deidra Sanders MD [address] DIV MEDICAL ONCOLOGY, [facility] [address] [place] [address] Medical Oncologist/Trains Service Conductor Medical Oncology 04/24/21 documented as of this encounter
--- OUTSIDE RECORDS SUMMARY | 2024-08-02 13:44 | XMS_ITS | Encounter Summary ---
Author Organization [facility] Address [address] [place] [address] Phone Care Team Providers Care Narrative Writer Name Role Phone Zandra Renner MD Unavailable Bib Burnham MD Unavailable [phone] Deidra Sanders MD Unavailable [phone] Therese Chadwick MD Primary Care Provider + Encounter Details Date Type Department Care Team (Late st Contact Info) Description 08/02/2024 Orders Only [facility] Oncology [address] [place] [phone] [place] [address] [address] Malignant neoplasm of upper-outer quadrant of right breast in female, estrogen receptor positive (HCC) (Primary Dx) Social History Tobacco Use Types Packs/Day Years Used Date Smoking Tobacco: Never Passive Smoke Exposure: Never Smokeless Tobacco: Never Alcohol Use Standard [...] on file 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 Gender Identity Not on file Sexual Orientation Not on file documented as of this encounter Plan of Treatment Scheduled Orders Name Type Priority Associated Diagnoses Orde r Schedule Comprehensive metabolic panel Lab Routine Malignant neoplasm of upper-outer quadrant of right breast in female, estrogen receptor positive (HCC) Expected: 11/02/2024 (Approximate), Expires: 08/02/2025 documented as of this encounter Visit Diagnoses Diagnosis Malignant neoplasm of upper-outer quadrant of right breast in female, estrogen receptor positive (HCC)- Primary documented in this encounter Care Teams Narrative Writer Relationship Specialty Start Date End Date Therese Chadwick MD [address] DIV MEDICAL ONCOLOGY, [facility] [address] [place] [address] PCP - General Family Medicine 04/11/23 Zandra Renner MD [address] [place] [address] Radiation Oncologist Radiation Oncology 04/22/21 Bib Burnham MD [address] [place] [address] Surgeon Surgical Oncology 04/22/21 Deidra Sanders MD [address] DIV MEDICAL ONCOLOGY, [facility] [address] [place] [address] Medical Oncologist/Packing House Laborer Medical Oncology 04/24/21 documented as of this encounter
--- OUTSIDE RECORDS SUMMARY | 2024-08-02 13:44 | XMS_ITS | Encounter Summary ---
Author Organization [facility] Address [address] [place] [address] Phone Care Team Providers Care Cooperer Name Role Phone Zandra Renner MD Unavailable Bib Burnham MD Unavailable [phone] Deidra Sanders MD Unavailable [phone] Therese Chadwick MD Primary Care Provider + Encounter Details Date Type Department Care Team (Late st Contact Info) Description 08/02/2024 Orders Only [facility] Oncology [address] [facility] [address] [place] [phone] [place] [address] [address] Social History Tobacco Use Types Packs/Day Years [...] on file Legal Sex Female 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 Gender Identity Not on file Sexual Orientation Not on file documented as of this encounter Plan of Treatment Not on file documented as of this encounter Visit Diagnoses Not on filedocumented in this encounter Care Teams Cooperer Relationship Specialty Start Date End Date Therese Chadwick MD [address] DIV MEDICAL ONCOLOGY, [facility] [address] [place] [address] PCP - General Family Medicine 04/11/23 Zandra Renner MD [address] [place] [address] Radiation Oncologist Radiation Oncology 04/22/21 Bib Burnham MD [address] [place] [address] Surgeon Surgical Oncology 04/22/21 Deidra Sanders MD [address] DIV MEDICAL ONCOLOGY, [facility] [address] [place] [address] Medical Oncologist/Manager Hospital Medical Oncology 04/24/21 documented as of this encounter
[2024-08-02 19:08] LABS: Alanine Aminotransferase 22 U/L (6-35); Albumin Level 4.2 g/dL (3.5-5.1); Alkaline Phosphatase 51 U/L (38-126); Anion Gap 5 mmol/L (4-12); Aspartate Amino Transferase 49 U/L (14-36); Bilirubin,Total 0.3 mg/dL (0.2-1.3); Blood Urea Nitrogen 21 mg/dL (7-17); Carbon Dioxide 30 mmol/L (22-30); Chloride 104 mmol/L (98-107); Cholesterol 186 mg/dL (0-200); Estimated Glomerular Filt Rate > 60; Glucose 99 mg/dL (65-110); HDL Direct 67 mg/dL; Potassium 3.8 mmol/L (3.4-5.0); Sodium 139 mmol/L (137-145); Triglycerides 168 mg/dL (<150)
[2024-08-02 19:21] LABS: LDL Cholesterol Direct 70 mg/dL
== END 2024-08-02 13:40 | disposition home or self-care (01) ==
PROVIDERS: PCP Family Medicine; Visit Provider Family Medicine
DX: Z79.899 Other long term (current) drug therapy (principal)
CPT/HCPCS: 36415; 80053; 80061

== ENCOUNTER 2024-09-04 11:37 | Outpatient (CLI) | payer OTHER, SELFPAY ==
[2024-09-04 13:37] LABS: Alanine Aminotransferase 20 U/L (6-35); Alkaline Phosphatase 44 U/L (38-126); Aspartate Amino Transferase 41 U/L (14-36); Bilirubin,Total 0.3 mg/dL (0.2-1.3); Total Protein 6.5 g/dL (6.3-8.2)
[2024-09-04 14:04] LABS: Hepatitis B Surface Antigen Negative (Negative)
[2024-09-04 14:09] LABS: HAV RESULT Negative (Negative); Hepatitis B Core IgM Result Negative (Negative)
[2024-09-04 14:21] LABS: Hepatitis C Virus Antibody Negative (Negative)
== END 2024-09-04 11:38 | disposition home or self-care (01) ==
LOC: ANHGOSHLAB 11:38
PROVIDERS: PCP Family Medicine; Visit Provider Family Medicine
DX: R94.5 Abnormal results of liver function studies (principal)
CPT/HCPCS: 36415; 80074; 80076